=== PATIENT | male | born 1960 | race Two or more races ===

== ENCOUNTER 2019-04-21 06:50 | Day surgery (SDC) | payer OTHER ==
[2019-04-21] MEDS ORDERED: AMIODARONE HCL200 MG (17:05)
[2019-04-21] MEDS ORDERED: TAMS0.4C (17:05)
== END 2019-04-21 12:04 | disposition home or self-care (01) ==
LOC: AMB-ENDOS 06:50
DX: D12.3 Benign neoplasm of transverse colon (principal)

== ENCOUNTER 2019-04-21 16:48 | Inpatient (IN) | payer OTHER ==
[~2019-04-21] VITALS: Ht 274.3 cm; Wt 5.0 kg
[2019-04-21] MEDS ORDERED: TAMS0.4C (17:05)
[2019-04-21] MEDS ORDERED: AMIODARONE HCL200 MG (17:05)
[2019-04-25] MEDS ORDERED: INTESTINEX680 M1 PO ×2 (14:02)
[2019-04-25] MEDS ORDERED: PERCOCET 5-3251 EACH PO ×2 (14:02)
== END 2019-04-25 14:19 | disposition home or self-care (01) | DRG 329 ==
LOC: ER 16:48 → SEC-K 17:36 → SURG 17:36
PROVIDERS: ADMIT Surgery
PROC: 07TB4ZZ Resection of Mesenteric Lymphatic, Percutaneous Endoscopic Approach (ICD-10-PCS; 2019-04-22)
PROC: 0DTM4ZZ Resection of Descending Colon, Percutaneous Endoscopic Approach (ICD-10-PCS; principal; 2019-04-22 09:00)
PROC: 4A12X4Z Monitoring of Cardiac Electrical Activity, External Approach (ICD-10-PCS; 2019-04-23)
DX: D12.4 Benign neoplasm of descending colon (principal); D61.2 Aplastic anemia due to other external agents; K62.5 Hemorrhage of anus and rectum; I48.0 Paroxysmal atrial fibrillation; R59.0 Localized enlarged lymph nodes; I45.6 Pre-excitation syndrome; J45.990 Exercise induced bronchospasm; N40.0 Benign prostatic hyperplasia without lower urinary tract symptoms; Z79.01 Long term (current) use of anticoagulants